=== PATIENT | male | born 1960 | race Caucasian/White ===

== ENCOUNTER → 2019-01-18 | Outpatient (CLI) | payer OTHER ==
--- NOTE | 2019-01-19 11:42 | P ---
[facility] [place] [address] PROCEDURE REPORT Name: RUKHSANA TIPTON Room #: REG [facility] MLuana.#: [id number] Admission: 01/18/19 ������������������ Attend Phys: Theron Canales MD Discharge: ������������������ Date of : 60 Report #: [id number] THIS REPORT FOR: //name// CC: CHE Cardenas DATE OF SERVICE: 01/18/2019 OUTPATIENT COLONOSCOPY BRIEF HISTORY: The patient is a 58-year-old male, with history of colon adenoma removed in 2010, for surveillance colonoscopy. PREOPERATIVE DIAGNOSIS: History of colon polyps. POSTOPERATIVE DIAGNOSES: 1. Diminutive colon polyp. 2. Mild sigmoid diverticulosis coli. MEDICATIONS: Deep sedation with propofol per anesthesia. SPECIMEN: Polyp from 20 cm. ESTIMATED BLOOD LOSS: 3 mL. PROCEDURE: Colonoscopy to cecum and terminal ileum with biopsy. FINDINGS: Prior to propofol sedation, procedure of colonoscopy was reviewed with the patient as well as potential risks and its complications. He indicates he understands and desires to proceed. DESCRIPTION OF PROCEDURE: With the patient in left lateral decubitus position, digital examination was completed, which revealed no abnormalities. Subsequently, the Olympus video colonoscope was in the rectum, advanced under direct vision to the cecum. Done with minimal difficulty. The cecum was identified by the ileocecal valve and the appendiceal orifice. I was able to visualize the distal segment of terminal ileum, which was inspected and noted to be unremarkable. At that point, the scope was slowly withdrawn and careful circumferential views obtained. Upon slow withdrawal of the scope, the prep was good. The mucosa was within normal limits, normal vascular pattern and normal light reflex. As we withdrew the scope, he was noted to have normal colonic mucosa throughout the colon. However, as we withdrew the scope distally in the sigmoid colon, there was mild sigmoid diverticular disease without endoscopic evidence of diverticulitis. As the scope was further withdrawn, a diminutive polyp was seen and removed by biopsy at 20 cm. Scope was further withdrawn and [facility] [address] [place] [address] PROCEDURE REPORT Name: DANUTA,PAUL Room #: [facility]ITAL[facility]a.#: [id number] Admission: 01/18/19 ������������������ Attend Phys: Theron Canales MD Discharge: ������������������ Date of : 60 Report #: [id number] no additional mucosal abnormalities were seen. In the rectum, no abnormalities were noted. Upon retroflexion, no abnormalities were seen. The scope was withdrawn. The patient tolerated the procedure well. CONDITION OF THE PATIENT UPON DISCHARGE: Following procedure, the patient drowsy, arousable, conversant and will be discharged home when fully ambulatory. INSTRUCTIONS TO THE PATIENT AND FAMILY AT THE TIME OF DISCHARGE: We will follow up on the pathology of polyp. If the polyp is an adenoma, he should return in 5 years; if it is hyperplastic, then 10 years would be indicated. Previous colonoscopy was in July 2011. Withdrawal time from the cecum was 14 minutes 19 seconds. ��������������������������������������������� <ELECTRONICALLY SIGNED> ���������������������������������������� By: Theron Canales MD ��������������������������������������������� 01/19/19 1142 1119 1854 Theron Canales MD /nt
--- NOTE | 2019-01-22 16:06 | PATH ---
[facility] [place] [address] [place] [address] PATHOLOGY RPT PROCEDURE Name: KEN URIBE Room #: REG NIGHAT Francis.#: [id number] ������������������ Admission: 01/18/19 ������������������ Date of : 60 Discharge: Report #: [id number] Path Case #: [id number] [facility] Accession Number: [id number] . 01 Material submitted: . colon - BX POLYP AT 20CM . 01 Clinical history: . Pre-OP DX: Screening, Hx polyps Post-OP DX: Colon polyp, diverticulosis . 02 Diagnosis: Colonic mucosa "biopsy polyp at 20 cm": - Tubular adenoma. - There is no evidence of high-grade dysplasia or malignancy. (SHA:mak; 01/22/2019) QMS/01/22/2019 . 02 Electronically signed: . Redd Gutiérrez MD, Pathologist NPI- [id number] . 01 Gross description: . Received in formalin labeled "Ken Uribe, BX polyp at 20 cm," is a single segment of farr soft tissue measuring 0.3 cm in maximum dimension. The specimen is entirely submitted in cassette A1. (TSD; 01/18/2019) TOB/TOB . 02 Pathologist provided ICD-10: D12.6 . 02 CPT . 692472 Specimen Comment: A courtesy copy of this report has been sent to Specimen Comment: [phone], . Specimen Comment: Report sent to DR NUNEZ / DR FLEMING Specimen Comment: A duplicate report has been generated due to demographic updates. Performed at: [address] [facility], [place] [id number] MD Galo Florence MD Phone: [phone] Performed at: [address] [id number] MD Kennedi Milan MD Phone: [phone]
== END | disposition home or self-care (01) ==
LOC: GI 08:23
DX: Z12.11 Encounter for screening for malignant neoplasm of colon (principal); Z86.010 Personal history of colon polyps; D12.5 Benign neoplasm of sigmoid colon; K57.30 Diverticulosis of large intestine without perforation or abscess without bleeding
CPT/HCPCS: 62110; 62900